=== PATIENT | male | born 1970 | race Caucasian/White ===

== ENCOUNTER 2016-10-07 15:27 | Emergency (ER) | payer BC, OTHER ==
[2016-10-07] MEDS ORDERED: ERYTHROMYCIN 0.5% OPHTHALMIC OINTMENT 3.5 GM TUBE OD ONE (15:30)
--- NOTE | 2016-10-07 15:30 | PDOC ---
History of Present Illness <Fran Macedo - Last Filed: 10/07/16 15:30> - General History Source: Patient Exam Limitations: No Limitations - History of Present Illness Initial Comments: 10/07/16 15:39 The patient is a 40 year old male, with no significant past medical history of, who presents to the emergency department with right eye pain secondary to getting poked in the eye by a tree branch prior to arrival. The patient reports that he has pain when he blinks and describes it as an uncomfortable sensation. He denies any decreased visual acuity. The patient reports that he received a tetanus shot within 1 year and does not wear contact lenses. He denies chest pain, shortness of breath, headache and dizziness. He denies fever, chills, nausea, vomit, diarrhea and constipation. He denies dysuria, frequency, urgency and hematuria. Allergies: None Social history: Never smoked <Ledy Graham - Last Filed: 10/07/16 15:40> - General Chief Complaint: Eye Problem Stated Complaint: RT EYE PAIN Time Seen by Provider: 10/07/16 15:28 Past History <RemingtonFran - Last Filed: 10/07/16 15:30> <Ledy Graham - Last Filed: 10/07/16 15:40> - Past Medical History Allergies/Adverse Reactions: Allergies Allergy/AdvReac Type Severity Reaction Status Date / Time No Known Allergies Allergy Verified 10/07/16 15:28 Home Medications: Ambulatory Orders Erythromycin 0.5% Eye Ointment [Erythromycin 0.5% Eye Ointment -] 1 applic OD 5XD #1 tube 10/07/16 Review of Systems - Review of Systems Able to Perform ROS?: Yes Comments:: 10/07/16 15:39 CONSTITUTIONAL: Absent: fever, no chills, no fatigue EYES: +right eye pain Absent: visual changes ENT: Absent: ear pain, no sore throat CARDIOVASCULAR: Absent: chest pain, no palpitations RESPIRATORY: Absent: cough, no SOB GI: Absent: abdominal pain, no nausea, no vomiting, no constipation, no diarrhea GENITOURINARY: Absent: dysuria, no frequency, no hematuria MUSCULOSKELETAL: Absent: back pain, no arthralgia, no myalgia SKIN: Absent: rash <Ledy Graham - Last Filed: 10/07/16 15:40> *Physical Exam - Vital Signs Last Vital Signs Temp Pulse Resp BP Pulse Ox 98.1 F 88 20 147/89 99 10/07/16 15:28 10/07/16 15:28 10/07/16 15:28 10/07/16 15:28 10/07/16 15:28 - Physical Exam Comments: 10/07/16 15:40 GENERAL: Well-appearing, well-nourished. No apparent distress. HEENT: +.5 mm corneal abrasion noted over the pupil in right eye. Normocephalic, atraumatic. PERRL, EOM intact. CARDIOVASCULAR: Normal S1, S2. Regular rate and rhythm. PULMONARY: Clear to auscultation bilaterally. ABDOMEN: Soft, non-distended, non-tender. EXTREMITIES: Normal ROM in all four extremities. No gross deformities. SKIN: Warm, dry. No rash NEUROLOGICAL: No focal neurological deficits. <Ledy Graham - Last Filed: 10/07/16 15:40> Medical Decision Making - Medical Decision Making 10/07/16 15:29 The patient is well-appearing and in no acute distress He is a very small corneal abrasion His tetanus vaccination status is current Clinical impression: Small corneal abrasion I discussed the physical exam findings, ancillary test results and final diagnoses with the patient. I answered all of the patient's questions. The patient was satisfied with the care received and felt comfortable with the discharge plan and treatment plan. The patient will call their primary care physician within 24 hours to arrange follow-up and will return to the Emergency Department with any new, persistent or worsening symptoms. <Fran Macedo - Last Filed: 10/07/16 15:30> *DC/Admit/Observation/Transfer <Fran Macedo - Last Filed: 10/07/16 15:30> - Attestations Scribe Attestion: 10/07/16 15:40 Documentation prepared by STEFFI Koch, acting as general medical practitioner for Fran Macedo MD. <Ledy Graham - Last Filed: 10/07/16 15:40> Diagnosis at time of Disposition: Corneal abrasion - Discharge Dispostion Disposition: HOME - Prescriptions Prescriptions: Erythromycin 0.5% Eye Ointment [Erythromycin 0.5% Eye Ointment -] 1 applic OD 5XD #1 tube - Referrals Referrals: Hemanth Muro MD [Staff Physician] - 3 days - Patient Instructions Printed Discharge Instructions: DI for Corneal Abrasion Additional Instructions: Return to the emergency department immediately with ANY new, persistent or worsening symptoms. You MUST call and follow up with your doctor tomorrow. Please make sure your doctor reviews the results of your emergency department evaluation.
[2016-10-07 15:34] VITALS: BP 147/89; PULSE 88; TEMP 98.1; BMI 29.8
[2016-10-07] MEDS ORDERED: ERYTHROMYCIN 0.5% OPHTHALMIC OINTMENT 3.5 GM TUBE ONE (16:03)
== END 2016-10-07 16:06 | disposition home or self-care (01) ==
LOC: EDBD 15:27 → FER 15:27
DX: S05.01XA Injury of conjunctiva and corneal abrasion without foreign body, right eye, initial encounter (principal); W22.8XXA Striking against or struck by other objects, initial encounter; Y93.9 Activity, unspecified; Y92.89 Other specified places as the place of occurrence of the external cause
CPT/HCPCS: 99281-25

== ENCOUNTER 2018-11-22 01:05 | Emergency (ER) | payer BC, OTHER | END 2018-11-22 02:33 | disposition home or self-care (01) | LOC: FER 01:05 ==

== ENCOUNTER 2024-03-10 13:16 | Emergency (ER) | payer BC, OTHER ==
[2024-03-10 13:23] VITALS: BP 136/82; PULSE 67; RESP 16; TEMP 97.5; BMI 26.1
[2024-03-10] MEDS ORDERED: LIDOCAINE 1%/EPI 1:100000 (20 ML MULTI DOSE VIAL) INF ONE (13:36)
[2024-03-10] MEDS ORDERED: LIDOCAINE HCL 2% (20ML MULTI-DOSE VIAL) ONE (13:44)
[2024-03-10] MEDS: LIDOCAINE HCL/PF 2% SDV 5ML VIAL SQ ONE (13:48)
== END 2024-03-10 14:49 | disposition home or self-care (01) ==
LOC: FER 13:16
DX: S61.211A Laceration without foreign body of left index finger without damage to nail, initial encounter (principal); X58.XXXA Exposure to other specified factors, initial encounter
CPT/HCPCS: 99283-25